=== PATIENT | female | born 1960 | race Caucasian/White ===

== ENCOUNTER → 2017-02-14 | Day surgery (SDC) | payer OTHER ==
[~2017-02-14] VITALS: Ht 152.4 cm; Wt 46.4 kg
[~2017-02-14] MED LIST: ADVAIR IH; ALLEGRA180 MG PO; ASPIR-LOW81 MG PO; ATIVAN 1MG T1 MG/TAB PO; ATIVAN1 MG PO; CARAFATE 1GM1 G PO; CARAFATE1 GM PO; CELEBREX 1100 MG/CAP PO; CENTRUM SILVER CHEW PO; CLEOCIN HC150 MG/CAP PO; CRANBERRY1 POW PO; DEXILANT60 MG PO; DUONEB 3 MG/3 ML3 ML IH; FIBER CHOICE1 CTB PO; FISH OIL 1000MG1 CAP PO; FLONASE NASAL S16 GM NS; IPRATROPIUM BROM3 M1 IH; LYSINE 500500 MG/TAB PO; MAGNEBIND 300 21 TAB PO; MASON NATURAL600 MG PO; NATURAL FLAX1000 MG PO; NORCO 325 MG-51 TAB PO; NORCO 325 MG-7.1 TAB PO; OMEPRAZOLE40 MG PO; PAMELOR PO; PAMELOR75 MG PO; PAXIL PO; PAXIL40 MG PO; PHENERGAN 25 TA25 MG; PHENERGAN 25 TA25 MG PO; PHENERGAN25 MG RC; PRE-NATAL VITAMIN PO; PREDNISONE10 MG PO; PREDNISONE20 MG PO; PRIL40 PO; PROAIR HFA0.09 MG/AC IH; QVAR0.08 MG/AC IH; SINGULAIR 110 MG/TAB PO; SLEEPING MED; ULTRAM 50MG TAB50 MG PO; UNISOM25 MG PO; VENTOLIN0.09 MG IH; VITAMIN B COMPL1 TA1 PO; ZITHROMAX Z PA250 MG PO; ZYRTEC 10MG10 MG PO; ZYRTEC10 MG PO
[2017-02-14 11:19] VITALS: BP 112/70; PULSE 67; TEMP 98.3
[2017-02-14 13:10] VITALS: BP 117/64; PULSE 79
[2017-02-14 13:25] VITALS: BP 114/51; PULSE 71
[2017-02-14 13:40] VITALS: BP 114/67; PULSE 65
[2017-02-14 13:55] VITALS: BP 102/59; PULSE 63
== END ==
LOC: SDCO 10:38
DX: K22.2 Esophageal obstruction (principal); K44.9 Diaphragmatic hernia without obstruction or gangrene; K21.9 Gastro-esophageal reflux disease without esophagitis; F41.9 Anxiety disorder, unspecified; F32.9 Major depressive disorder, single episode, unspecified; J45.909 Unspecified asthma, uncomplicated; E66.9 Obesity, unspecified; Z80.0 Family history of malignant neoplasm of digestive organs; Z87.11 Personal history of peptic ulcer disease; Z98.51 Tubal ligation status; K31.89 Other diseases of stomach and duodenum
CPT/HCPCS: C1726; J2250; J3010; J7030

== ENCOUNTER 2017-02-18 11:25 | Emergency (ER) | payer OTHER ==
[~2017-02-18] VITALS: Ht 152.4 cm; Wt 86.4 kg
[~2017-02-18 11:25] MED LIST changes: -FISH OIL 1000MG1 CAP PO; -MASON NATURAL600 MG PO; -NATURAL FLAX1000 MG PO; -VITAMIN B COMPL1 TA1 PO
[2017-02-18 11:29] VITALS: TEMP 97.1
[2017-02-18] MEDS ORDERED: FISH OIL 1000MG1 CAP PO (11:48)
[2017-02-18] MEDS ORDERED: NATURAL FLAX1000 MG PO (11:48)
[2017-02-18] MEDS ORDERED: MASON NATURAL600 MG PO (11:48)
[2017-02-18] MEDS ORDERED: VITAMIN B COMPL1 TA1 PO (11:49)
[2017-02-18 11:55] LABS: BASO # 0.1 (0.0-0.2); EOS # 0.3 (0.0-0.7); EOS % 2.9 % (0-4.0); GRAN # 4.8 (1.4-6.5); GRAN % 53.2 % (42.2-75.2); HEMATOCRIT 38.2 % (37.0-47.0); HEMOGLOBIN 12.4 g/dl (12.5-16.0); LYMPH % 33.3 % (20.0-51.0); MEAN CELL VOLUME 87 fl (80.0-100.0); MEAN CORPUSCULAR HEMOGLOBIN 28 pg (27.0-31.0); MEAN CORPUSCULAR HGB CONC 33 g/dl (33.0-37.0); MEAN PLATELET VOLUME 10.2 fl (7.4-10.4); MONO # 0.8 (0.1-0.6); MONO % 9.3 % (1.7-9.3); PLATELET COUNT 311 K/mm3 (130-400); RED BLOOD COUNT 4.39 M/mm3 (4.10-5.30); REDCELL DISTRIBUTION WIDTH-CV 14.3 % (11.5-14.5)
[2017-02-18 12:17] LABS: ADJUSTED CALCIUM 9.8 mg/dL (8.4-10.2); ALANINE AMINOTRANSFERASE 23 U/L (9-52); ALKALINE PHOSPHATASE 79 U/L (50-136); ANION GAP 10 mmol/L (7-16); BILIRUBIN,TOTAL 0.5 mg/dL (0.0-1.0); BLOOD UREA NITROGEN 20 mg/dL (7-17); CALCIUM 9.8 mg/dL (8.4-10.2); CARBON DIOXIDE 24 mmol/L (22-30); CHLORIDE 103 mmol/L (98-107); CREATININE, serum 0.99 mg/dL (0.52-1.25); GLUCOSE 86 mg/dL (74-106); LIPASE 119 U/L (23-300); POTASSIUM 4.3 mmol/L (3.4-5.0); SODIUM 137 mmol/L (137-145); TOTAL PROTEIN 6.8 gm/dL (6.4-8.2)
[2017-02-18 12:27] LABS: C-REACTIVE PROTEIN < 0.5 mg/dL (0.0-0.9); TROPONIN-I < 0.012 ng/mL (0.000-0.034)
[2017-02-18 15:19] VITALS: BP 121/73; PULSE 82
== END 2017-02-18 15:19 | disposition home or self-care (01) ==
LOC: COL.ER 11:25
PROVIDERS: Emergency Medicine
DX: R07.9 Chest pain, unspecified (principal); J45.909 Unspecified asthma, uncomplicated; K21.9 Gastro-esophageal reflux disease without esophagitis

== ENCOUNTER → 2017-02-27 | Outpatient (CLI) | payer OTHER ==
[~2017-02-27] MED LIST changes: +FISH OIL 1000MG1 CAP PO; +MASON NATURAL600 MG PO; +NATURAL FLAX1000 MG PO; +VITAMIN B COMPL1 TA1 PO
== END ==
LOC: COL.RAD 07:28
DX: K21.9 Gastro-esophageal reflux disease without esophagitis (principal); R13.10 Dysphagia, unspecified; R09.81 Nasal congestion; R11.10 Vomiting, unspecified
CPT/HCPCS: A9541

== ENCOUNTER 2017-10-21 20:50 | Emergency (ER) | payer OTHER ==
[~2017-10-21] VITALS: Ht 152.4 cm; Wt 89.5 kg
[2017-10-21 21:01] VITALS: TEMP 98
[2017-10-21] MEDS ORDERED: NAPROSYN500 MG PO (23:44)
[2017-10-22 00:09] VITALS: BP 119/67; PULSE 86
== END 2017-10-22 00:09 | disposition home or self-care (01) ==
LOC: COL.ER 20:50
DX: M79.672 Pain in left foot (principal); J45.909 Unspecified asthma, uncomplicated; K21.9 Gastro-esophageal reflux disease without esophagitis; Z88.2 Allergy status to sulfonamides; Z98.890 Other specified postprocedural states; Z79.51 Long term (current) use of inhaled steroids; X50.9XXA Other and unspecified overexertion or strenuous movements or postures, initial encounter
CPT/HCPCS: J1885

== ENCOUNTER 2018-09-30 09:43 | Emergency (ER) | payer BC ==
[~2018-09-30] VITALS: Ht 152.4 cm; Wt 81.8 kg
[~2018-09-30 09:43] MED LIST changes: +LEVAQUIN 750MG750 M1 PO; +NAPROSYN500 MG PO
[2018-09-30 09:48] VITALS: TEMP 98.6
[2018-09-30] MEDS ORDERED: MEDROL4 MG (10:02)
[2018-09-30 10:20] LABS: BASO # 0.1 (0.0-0.2); BASO % 1.3 % (0.0-2.0); EOS # 0.3 (0.0-0.7); EOS % 3.2 % (0-4.0); GRAN # 4.1 (1.4-6.5); GRAN % 47.2 % (42.2-75.2); HEMATOCRIT 41.2 % (37.0-47.0); HEMOGLOBIN 13.5 g/dl (12.5-16.0); LYMPH # 3.5 (1.2-3.4); LYMPH % 40.2 % (20.0-51.0); MEAN CELL VOLUME 85 fl (80.0-100.0); MEAN CORPUSCULAR HEMOGLOBIN 28 pg (27.0-31.0); MEAN CORPUSCULAR HGB CONC 33 g/dl (33.0-37.0); MEAN PLATELET VOLUME 10.4 fl (7.4-10.4); MONO # 0.7 (0.1-0.6); MONO % 7.8 % (1.7-9.3); PLATELET COUNT 376 K/mm3 (130-400); RED BLOOD COUNT 4.84 M/mm3 (4.10-5.30); REDCELL DISTRIBUTION WIDTH-CV 14.9 % (11.5-14.5)
[2018-09-30 10:29] LABS: ALANINE AMINOTRANSFERASE 22 U/L (9-52); ALKALINE PHOSPHATASE 76 U/L (50-136); ANION GAP 9 mmol/L (7-16); AST,SGOT 17 U/L (15-37); BILIRUBIN,TOTAL 0.3 mg/dL (0.0-1.0); BLOOD UREA NITROGEN 19 mg/dL (7-17); CALCIUM 9.7 mg/dL (8.4-10.2); CARBON DIOXIDE 30 mmol/L (22-30); CHLORIDE 100 mmol/L (98-107); CREATININE, serum 0.75 mg/dL (0.52-1.25); GLUCOSE 103 mg/dL (74-106); POTASSIUM 4.1 mmol/L (3.4-5.0); SODIUM 138 mmol/L (137-145); TOTAL PROTEIN 6.8 gm/dL (6.4-8.2)
[2018-09-30 10:41] LABS: TROPONIN-I < 0.012 ng/mL (0.000-0.035)
[2018-09-30] MEDS ORDERED: PROAIR HFA0.09 MG/AC IH (10:48)
[2018-09-30] MEDS ORDERED: PREDNISONE20 MG PO (10:48)
[2018-09-30 11:22] VITALS: BP 119/64; PULSE 68
== END 2018-09-30 11:40 | disposition home or self-care (01) ==
LOC: COL.ER 09:43
PROVIDERS: Emergency Medicine
DX: R06.02 Shortness of breath (principal); Z98.890 Other specified postprocedural states; Z98.51 Tubal ligation status
CPT/HCPCS: J2930

== ENCOUNTER → 2018-10-06 | Outpatient (CLI) | payer BC ==
[~2018-10-06] MED LIST changes: +MEDROL4 MG
== END ==
LOC: MC.RAD 07:00
DX: Z00.00 Encounter for general adult medical examination without abnormal findings (principal); Z12.31 Encounter for screening mammogram for malignant neoplasm of breast

== ENCOUNTER 2018-11-10 21:06 | Emergency (ER) | payer BC ==
[~2018-11-10] VITALS: Ht 152.4 cm; Wt 80.9 kg
[2018-11-10 21:09] VITALS: TEMP 97.6
[2018-11-10 22:18] LABS: BASO # 0.1 (0.0-0.2); BASO % 0.4 % (0.0-2.0); EOS # 0.1 (0.0-0.7); EOS % 0.6 % (0-4.0); GRAN # 10.1 (1.4-6.5); GRAN % 81.4 % (42.2-75.2); HEMATOCRIT 38.9 % (37.0-47.0); HEMOGLOBIN 12.8 g/dl (12.5-16.0); LYMPH # 1.6 (1.2-3.4); LYMPH % 12.7 % (20.0-51.0); MEAN CELL VOLUME 86 fl (80.0-100.0); MEAN CORPUSCULAR HEMOGLOBIN 28 pg (27.0-31.0); MEAN CORPUSCULAR HGB CONC 33 g/dl (33.0-37.0); MEAN PLATELET VOLUME 10.3 fl (7.4-10.4); MONO # 0.5 (0.1-0.6); PLATELET COUNT 316 K/mm3 (130-400); RED BLOOD COUNT 4.55 M/mm3 (4.10-5.30); REDCELL DISTRIBUTION WIDTH-CV 14.9 % (11.5-14.5)
[2018-11-10 22:24] LABS: ALBUMIN 3.8 gm/dL (3.5-5.0); BILIRUBIN,TOTAL 0.5 mg/dL (0.0-1.0); CALCIUM 9.2 mg/dL (8.4-10.2); CREATININE, serum 0.72 mg/dL (0.52-1.25); POTASSIUM 3.7 mmol/L (3.4-5.0); TOTAL PROTEIN 6.4 gm/dL (6.4-8.2)
[2018-11-11 00:34] VITALS: BP 125/69; PULSE 72
== END 2018-11-11 00:35 | disposition home or self-care (01) ==
LOC: COL.ER 21:06
PROVIDERS: Nurse Practitioner
DX: R09.89 Other specified symptoms and signs involving the circulatory and respiratory systems (principal); J45.909 Unspecified asthma, uncomplicated; Z88.2 Allergy status to sulfonamides
CPT/HCPCS: Q9967

== ENCOUNTER 2019-08-26 13:03 | Emergency (ER) | payer BC ==
[~2019-08-26] VITALS: Ht 152.4 cm; Wt 84.1 kg
[~2019-08-26 13:03] MED LIST changes: +PAXIL 10MG10 MG PO; -PAXIL PO; +QVAR REDIHALE10.6 GM IH; -QVAR0.08 MG/AC IH
[2019-08-26 13:22] VITALS: TEMP 97.1
[2019-08-26 13:42] LABS: COLLECTION METHOD CLEAN CATCH
[2019-08-26 13:50] LABS: MUCOUS Present /lpf; PH 5 (5-8); SQUAMOUS EPITHELIAL 0-2 /hpf; URINE APPEARANCE Clear; URINE BACTERIA None Seen /hpf; URINE BILIRUBIN Negative (NEGATIVE); URINE BLOOD Negative (NEGATIVE); URINE COLOR Yellow; URINE GLUCOSE Negative (NEGATIVE); URINE KETONE Negative (NEGATIVE); URINE LEUKOCYTE ESTERASE 1+ (NEGATIVE); URINE NITRATE Negative (NEGATIVE); URINE PROTEIN(semi-quant) Negative (NEGATIVE); URINE RBC 0-2 /hpf; URINE UROBILINOGEN Negative (NEGATIVE)
[2019-08-26] MEDS ORDERED: VIACTIV PO (14:58)
[2019-08-26 16:12] LABS: BASO # 0.1 (0.0-0.2); BASO % 0.9 % (0.0-2.0); EOS # 0.5 (0.0-0.7); EOS % 4.3 % (0-4.0); GRAN # 7.5 (1.4-6.5); GRAN % 68.4 % (42.2-75.2); HEMATOCRIT 39.6 % (37.0-47.0); HEMOGLOBIN 12.6 g/dl (12.5-16.0); LYMPH # 2.1 (1.2-3.4); LYMPH % 19.1 % (20.0-51.0); MEAN CELL VOLUME 87 fl (80.0-100.0); MEAN CORPUSCULAR HEMOGLOBIN 28 pg (27.0-31.0); MEAN CORPUSCULAR HGB CONC 32 g/dl (33.0-37.0); MEAN PLATELET VOLUME 10.5 fl (7.4-10.4); MONO # 0.8 (0.1-0.6); PLATELET COUNT 321 K/mm3 (130-400); RED BLOOD COUNT 4.53 M/mm3 (4.10-5.30); REDCELL DISTRIBUTION WIDTH-CV 15.1 % (11.5-14.5)
[2019-08-26 16:20] LABS: BILIRUBIN,TOTAL 0.6 mg/dL (0.0-1.0); CALCIUM 8.8 mg/dL (8.4-10.2); CREATININE, serum 0.76 (0.52-1.25); POTASSIUM 3.8 mmol/L (3.4-5.0); TOTAL PROTEIN 6.6 gm/dL (6.4-8.2)
[2019-08-26] MEDS ORDERED: NORCO 325 MG-51 TAB PO (17:46)
[2019-08-26] MEDS ORDERED: PHENERGAN 25 TA25 MG PO (17:46)
[2019-08-26 18:00] VITALS: BP 134/82; PULSE 69
[2019-08-27] MEDS ORDERED: SUDAFED 12 HOU120 MG PO (03:04)
[2019-08-27] MEDS ORDERED: 00186-0372-20 IH (03:10)
[2019-08-27] MEDS ORDERED: LYRICA 75MG CAP75 MG PO (03:12)
[2019-08-27] MEDS ORDERED: IBU800 M1 PO (03:12)
[2019-08-27] MEDS ORDERED: NORCO 325 MG-51 TAB PO (18:28)
[2019-08-27] MEDS ORDERED: MOTRIN 600600 MG/TAB PO (18:28)
[2019-08-27] MEDS ORDERED: AMOXICILLIN 8751 TAB PO (18:28)
== END 2019-08-26 18:00 | disposition home or self-care (01) ==
LOC: COL.ER 13:03
PROVIDERS: Emergency Medicine
DX: R10.11 Right upper quadrant pain (principal)
CPT/HCPCS: J1170; J2405; J7030

== ENCOUNTER 2019-08-27 01:25 | Observation (INO) | payer BC ==
[~2019-08-27] VITALS: Ht 152.4 cm; Wt 91.0 kg
[2019-08-27] VITALS (12 sets, daily range): BP systolic 91–157; BP diastolic 56–78; PULSE 72–93; TEMP 97.6–98.8
[~2019-08-27 01:25] MED LIST changes: +VIACTIV PO
[2019-08-27 02:03] LABS: BASO # 0.1 (0.0-0.2); BASO % 0.8 % (0.0-2.0); EOS # 0.3 (0.0-0.7); EOS % 2.7 % (0-4.0); GRAN # 8.8 (1.4-6.5); GRAN % 76.8 % (42.2-75.2); HEMATOCRIT 40.2 % (37.0-47.0); HEMOGLOBIN 12.7 g/dl (12.5-16.0); LYMPH # 1.5 (1.2-3.4); LYMPH % 13.3 % (20.0-51.0); MEAN CELL VOLUME 87 fl (80.0-100.0); MEAN CORPUSCULAR HEMOGLOBIN 28 pg (27.0-31.0); MEAN CORPUSCULAR HGB CONC 32 g/dl (33.0-37.0); MEAN PLATELET VOLUME 10.3 fl (7.4-10.4); MONO # 0.7 (0.1-0.6); PLATELET COUNT 324 K/mm3 (130-400); RED BLOOD COUNT 4.61 M/mm3 (4.10-5.30); REDCELL DISTRIBUTION WIDTH-CV 15.1 % (11.5-14.5)
[2019-08-27 02:28] LABS: ALBUMIN 4.1 gm/dL (3.5-5.0); BILIRUBIN,TOTAL 0.6 mg/dL (0.0-1.0); CALCIUM 8.7 mg/dL (8.4-10.2); CREATININE, serum 0.78 (0.52-1.25); POTASSIUM 4.1 mmol/L (3.4-5.0); TOTAL PROTEIN 6.8 gm/dL (6.4-8.2)
--- NOTE | 2019-08-27 02:55 | NUR ---
Arrives per w/c, is alert and oriented x4. Ambulatory in room with steady gait.
[2019-08-27] MEDS ORDERED: SUDAFED 12 HOU120 MG PO (03:04)
[2019-08-27] MEDS ORDERED: 00186-0372-20 IH (03:10)
[2019-08-27] MEDS ORDERED: IBU800 M1 PO (03:12)
[2019-08-27] MEDS ORDERED: LYRICA 75MG CAP75 MG PO (03:12)
--- NOTE | 2019-08-27 03:30 | NUR ---
ADMISSION QUESTIONS COMPLETED. PATIENT RATES PAIN TO RUQ 6/10. CAN HAVE PAIN MEDS AGAIN AT 0400.
--- NOTE | 2019-08-27 04:03 | NUR ---
Medicated with Dilaudid 0.5mg IVP for pain to right upper abd 8/10 on pain scale.
--- NOTE | 2019-08-27 07:12 | NUR ---
REPORT FROM EMERITA WINCHESTER.
--- NOTE | 2019-08-27 08:55 | NUR ---
PT RESTING IN BED REQUESTING DILAUDID FOR PAIN. GAVE DIRECTED. PT VOICED NO OTHER CONSERND. RESTING QUIETLY IN ROOM.
--- NOTE | 2019-08-27 10:34 | NUR ---
ESTUARDO met with the patient and the patient's son, Oneil to discuss a discharge plan. ESTUARDO obtained permission to do intake with son present. The patient lives in [place] with her son. The patient has a walker, cane, neubulizer and a CPAP (receives supplies from [employer]). The patient reports independence with ADLs. The patient's PCP is Dr. Roland and patient receives medications from [facility] in . The patient reports there are times when she cannot afford medications. ESTUARDO provided community resources for prescriptions. The patient does not have advanced directives in the EMR but was interested in DPOA-HC form. Form provided. The patient plan to return home upon discharge. There are no additional needs at this time.
--- NOTE | 2019-08-27 16:04 | NUR ---
The patient completed DPOA-HC paperwork. SW and ROAD HOGGER OPERATOR witnessed. A copy was placed in the chart, the original and copies were provided to the patient.
--- NOTE | 2019-08-27 16:27 | NUR ---
PT TO SURGERY AT TH IS TIME.
[2019-08-27] MEDS ORDERED: NORCO 325 MG-51 TAB PO (18:28)
[2019-08-27] MEDS ORDERED: MOTRIN 600600 MG/TAB PO (18:28)
[2019-08-27] MEDS ORDERED: AMOXICILLIN 8751 TAB PO (18:28)
--- NOTE | 2019-08-27 19:16 | NUR ---
Arrives to floor per bed from PACU. Is drowsy, alert. Reports soreness to abdomen. Robotic sites glued and dry. Family at bedside.
--- NOTE | 2019-08-27 19:25 | NUR ---
GIVEN NORCO 5/325MG 1 TAB AT THIS TIME FOR PAIN 5/10 TO ABDOMEN. COMPLAINS OF RIGHT SHOULDER DISCOMFORT, ENCOURAGED EARLY AMBULATION.
--- NOTE | 2019-08-27 19:27 | NUR ---
Reports feeling like its difficult to breath. Elevated head of bed, family did give pt 2 puffs on her inhaler from home. SaO2 94% on 3L/nc. Asking for pain meds.
--- NOTE | 2019-08-27 20:45 | NUR ---
PATIENT UP TO BATHROOM, VOIDS 200CC AND AMBULATES IN HALLWAY WITH STAFF AND FAMILY, GAIT STEADY.
--- NOTE | 2019-08-27 21:30 | NUR ---
HS MEDS GIVEN INCLUDING ATIVAN 1MG PO AND TRAMADOL 50MG FOR PAIN. TAKING ORAL FLUIDS WELL. OXYGEN ON AT 1L/NC.
--- NOTE | 2019-08-27 23:14 | NUR ---
MEDICATED WITH NORCO 5/325MG 1 TAB AND SCHEDULED MOTRIN AT THIS TIME. PATIENT VOIDING WELL AND TAKING ORAL FLUIDS WITHOUT PROBLEM. IVF CAPPED AT THIS TIME.
[2019-08-28 03:53] VITALS: BP 109/57; PULSE 85; TEMP 98.4
--- NOTE | 2019-08-28 04:00 | NUR ---
PATIENT UP TO BATHROOM WITH STEADY GAIT. REPORTS PAIN 5/10 TO LEFT ABDOMEN. MEDICATED WITH NORCO 5/325MG PO AND ICE PACK PROVIDED.
--- NOTE | 2019-08-28 06:08 | NUR ---
TAKES AM SCHEDULED MOTRIN. NO CONCERNS OFFERED AT THIS TIME.
[2019-08-28 08:01] VITALS: BP 101/45; PULSE 76; TEMP 97.8
--- NOTE | 2019-08-28 09:00 | NUR ---
Patient is doing well this mornining. She has been up ambulating in the room. Denies nausea at this time. Stated having some mild discomfort to abdomen. Patient stated her daughter will be here around 1100 to get her. No other changes at this time. Patient tolerating diet well. No other changes at this time. Call light within reach.
--- NOTE | 2019-08-28 11:30 | NUR ---
Patient is discharging home. Discharge instructions discussed with patient. No questions verbalized. INT discontinued. Copies of discharge instructions sent with patient. All belongings packed up and sent with patient. Explained she needs to call Friday to make a follow up appointment. Patient verbalized understanding. Patient walked out via wheel chair by Mesha ARELLANO.
== END 2019-08-28 11:30 | disposition home or self-care (01) ==
LOC: COL.ER 01:25 → SURG 02:01
PROVIDERS: Nurse Practitioner; ADMIT Surgery
DX: K80.00 Calculus of gallbladder with acute cholecystitis without obstruction (principal); J44.9 Chronic obstructive pulmonary disease, unspecified; G47.33 Obstructive sleep apnea (adult) (pediatric); K21.9 Gastro-esophageal reflux disease without esophagitis; F32.9 Major depressive disorder, single episode, unspecified; F41.9 Anxiety disorder, unspecified; Z88.2 Allergy status to sulfonamides; Z91.040 Latex allergy status; Z79.51 Long term (current) use of inhaled steroids
CPT/HCPCS: A4216; A9284; G0378; J0330; J1100; J1170; J2250; J2405; J2704; J3010; J7030

== ENCOUNTER 2019-11-02 12:22 | Emergency (ER) | payer BC ==
[~2019-11-02] VITALS: Ht 152.4 cm; Wt 87.3 kg
[~2019-11-02 12:22] MED LIST changes: +00186-0372-20 IH; +AMOXICILLIN 8751 TAB PO; +IBU800 M1 PO; +LYRICA 75MG CAP75 MG PO; +MOTRIN 600600 MG/TAB PO; +SUDAFED 12 HOU120 MG PO
[2019-11-02 14:20] VITALS: TEMP 97.8
[2019-11-02] MEDS ORDERED: FLEXERIL5 MG PO (14:31)
[2019-11-02 17:50] VITALS: BP 159/69; PULSE 85
== END 2019-11-02 17:51 | disposition home or self-care (01) ==
LOC: COL.ER 12:22
DX: J45.901 Unspecified asthma with (acute) exacerbation (principal); K21.9 Gastro-esophageal reflux disease without esophagitis; M79.7 Fibromyalgia; Z79.51 Long term (current) use of inhaled steroids; Z90.89 Acquired absence of other organs; Z98.890 Other specified postprocedural states
CPT/HCPCS: J2920; J7030

== ENCOUNTER → 2020-03-06 | Outpatient (CLI) | payer BC ==
[~2020-03-06] MED LIST changes: +FLEXERIL5 MG PO
== END ==
LOC: MC.RAD 10:29
DX: Z12.31 Encounter for screening mammogram for malignant neoplasm of breast (principal)

== ENCOUNTER → 2021-01-24 | Outpatient (CLI) | payer OTHER ==
[~2021-01-24] MED LIST changes: +ZOFRAN ODT4 MG PO
== END ==
LOC: COL.VAS 11:15
DX: M79.89 Other specified soft tissue disorders (principal); Z96.659 Presence of unspecified artificial knee joint

== ENCOUNTER 2021-02-07 20:13 | Emergency (ER) | payer OTHER ==
[~2021-02-07] VITALS: Ht 152.4 cm; Wt 81.8 kg
[~2021-02-07 20:13] MED LIST changes: -ZOFRAN ODT4 MG PO
[2021-02-07 20:29] VITALS: TEMP 98.1
[2021-02-07 21:18] LABS: BASO # 0.1 (0.0-0.2); BASO % 0.7 % (0.0-2.0); EOS % 0.3 % (0-4.0); HEMATOCRIT 38.2 % (37.0-47.0); HEMOGLOBIN 12.4 g/dl (12.5-16.0); LYMPH # 2.2 (1.2-3.4); LYMPH % 21.7 % (20.0-51.0); MEAN CELL VOLUME 86 fl (80.0-100.0); MEAN CORPUSCULAR HEMOGLOBIN 28 pg (27.0-31.0); MEAN CORPUSCULAR HGB CONC 33 g/dl (33.0-37.0); MEAN PLATELET VOLUME 10.4 fl (7.4-10.4); MONO # 0.9 (0.1-0.6); PLATELET COUNT 488 K/mm3 (130-400); RED BLOOD COUNT 4.47 M/mm3 (4.10-5.30); REDCELL DISTRIBUTION WIDTH-CV 15.1 % (11.5-14.5)
[2021-02-07 21:27] LABS: ALBUMIN 4.6 gm/dL (3.5-5.0); BILIRUBIN,TOTAL 0.4 mg/dL (0.0-1.0); CREATININE, serum 0.78 (0.52-1.25); POTASSIUM 3.3 mmol/L (3.4-5.0); TOTAL PROTEIN 7.8 gm/dL (6.4-8.2)
[2021-02-07 23:10] LABS: COLLECTION METHOD CLEAN CATCH
[2021-02-07 23:17] LABS: MUCOUS Present /lpf; PH 6 (5-8); SQUAMOUS EPITHELIAL 0-2 /hpf; URINE APPEARANCE Hazy; URINE BACTERIA None Seen /hpf; URINE BILIRUBIN Negative (NEGATIVE); URINE BLOOD Negative (NEGATIVE); URINE COLOR Yellow; URINE GLUCOSE Negative (NEGATIVE); URINE KETONE 1+ (NEGATIVE); URINE LEUKOCYTE ESTERASE Trace (NEGATIVE); URINE NITRATE Negative (NEGATIVE); URINE PROTEIN(semi-quant) 1+ (NEGATIVE)
[2021-02-07] MEDS ORDERED: ZOFRAN ODT4 MG PO (23:17)
[2021-02-07 23:25] VITALS: BP 143/85; PULSE 80
== END 2021-02-07 23:30 | disposition home or self-care (01) ==
LOC: COL.ER 20:13
PROVIDERS: Emergency Medicine
DX: A08.4 Viral intestinal infection, unspecified (principal); E86.0 Dehydration; J45.909 Unspecified asthma, uncomplicated; Z90.49 Acquired absence of other specified parts of digestive tract; Z79.51 Long term (current) use of inhaled steroids
CPT/HCPCS: J1630; J2405; J2765; J7030